=== PATIENT | female | born 1970 | race Caucasian/White ===

== ENCOUNTER 2017-10-16 16:10 | Observation (INO) | payer BC ==
[2017-10-16] VITALS (7 sets, daily range): BP systolic 138–178; BP diastolic 82–101; PULSE 80–96; RESP 16–17; TEMP 97.8–98.3; O2SAT 98–99
[~2017-10-16] VITALS: Ht 162.6 cm; Wt 71.0 kg
[~2017-10-16 16:10] MED LIST: LORTA5 PO
[2017-10-16] MEDS ORDERED: NALT1TAB3 PO (16:58)
[2017-10-16] MEDS ORDERED: ADDE20 PO (16:58)
[2017-10-16] MEDS ORDERED: ATOR20TA15 PO (16:58)
--- NOTE | 2017-10-16 17:13 | RADRPT ---
EXAM DATE/TIME: 10/16/2017 16:46 [facility] COMPARISON: No previous studies available for comparison. INDICATIONS : Posterior chest pain, denies injury MEDICAL HISTORY : None. SURGICAL HISTORY : None. ENCOUNTER: Initial ACUITY: 1 day PAIN SCORE: 5/10 LOCATION: chest FINDINGS: PA and lateral views of the chest demonstrate the lungs to be symmetrically aerated without evidence of mass, infiltrate or effusion. The cardiomediastinal contours are unremarkable. Osseous structure s are intact. CONCLUSION: No acute disease. Ashkan Logan MD on October 16, 2017 at 17:10 Board Certified Radiologist. This report was verified electronically.
[2017-10-16 17:14] LABS: AUTOMATED NEUTROPHIL # 5.3 TH/MM3 (1.8-7.7); BASOPHIL # 0.1 TH/MM3 (0-0.2); BASOPHIL % 1.1 % (0.0-2.0); EOSINOPHIL # 0.5 TH/MM3 (0-0.4); HEMOGLOBIN 13.5 GM/DL (11.6-15.3); LYMPH % 27.9 % (9.0-44.0); LYMPHOCYTE # 2.6 TH/MM3 (1.0-4.8); MEAN CELL VOLUME 92.7 FL (80.0-100.0); MEAN CORPUSCULAR HGB CONC 34.5 % (32.0-36.0); MEAN PLATELET VOLUME 8.3 FL (7.0-11.0); MONO % 8.8 % (0.0-8.0); MONOCYTE # 0.8 TH/MM3 (0-0.9); NEUT % 57.2 % (16.0-70.0); PLATELET COUNT 309 TH/MM3 (150-450); RED BLOOD COUNT 4.21 MIL/MM3 (4.00-5.30); RED CELL DISTRIBUTION WIDTH 12.4 % (11.6-17.2); WHITE BLOOD COUNT 9.3 TH/MM3 (4.0-11.0)
[2017-10-16] MEDS ORDERED: ASPIRIN 81 MG CHEW TAB CHEW ONE (17:15)
--- NOTE | 2017-10-16 17:20 | PD ---
HPI . Chest pain Chief Complaint: Cardiac Complaint Time Seen by Provider: 17:01 Travel History International Travel<30 days: No Contact w/Intl Traveler<30days: No Traveled to known affect area: No History of Present Illness HPI Patient presents with a chief complaint of chest pain. She describes a discomfort that starts in her back and pushes through her chest. It started last night. It has waxed and waned. Intensity is 6/10. Quality is a pressure/ pounding sensation. She also states that she feels like her heart is beating irregularly. Symptoms are associated with a headache. PFSH Past Medical History Cancer: No Cardiovascular Problems: No High Cholesterol: Yes Diabetes: No Diminished Hearing: No Endocrine: No Gastrointestinal Disorders: Yes (hiatel hernia) Genitourinary: No Hepatitis: No Hiatal Hernia: Yes Hypertension: No Immune Disorder: Yes (psorisis) Medical other: Yes Musculoskeletal: No Neurologic: No Psychiatric: No Reproductive: Yes Respiratory: No Thyroid Disease: No Tetanus Vaccination: > 5 Years Influenza Vaccination: No ?: Not Menopausal: Yes : 2 Para: 2 Dilation and Curettage (D&C): Yes Tubal Ligation: Yes Past Surgical History Gynecologic Surgery: Yes (NOVASURE ABLATION, TUBAL LIG., D & C,CERVIC REMOVED) Hysterectomy: Yes (PARTIAL) Pacemaker: No Other Surgery: Yes (ABLATION) Social History Alcohol Use: Yes (EVERY OTHER DAY) Tobacco Use: No (quit 20 years ago) Substance Use: No Allergies-Medications (Allergen,Severity, Reaction): Coded Allergies: latex (Verified Allergy, Severe, rash, 10/16/17) morphine (Verified Allergy, Severe, SHORT OF BREATH, 10/16/17) Reported Meds & Prescriptions Reported Meds & Active Scripts Active Reported Adderall (Amphetamine-Dextroamphetamine) 20 Mg Tab 20 Mg PO DAILY Avoid late evening doses. Space doses at least 4 to 6 hours if more than once/day dosing. Contrave ER 12 HR (Naltrexone HCl-Bupropion ER 12 HR) 8-90 Mg Tab 1 Tab PO BID Atorvastatin (Atorvastatin Calcium) 20 Mg Tab 20 Mg PO HS Review of Systems Except as stated in HPI: all other systems reviewed are Neg HENT: Positive: Headaches Cardiovascular: Positive: Chest Pain or Discomfort, Palpitations Respiratory: No: Shortness of Breath Physical Exam Narrative GENERAL: Awake and alert. SKIN: warm/dry. HEAD: Normocephalic. Atraumatic. EYES: Pupils equal and round. No scleral icterus. No injection or drainage. ENT: No nasal bleeding or discharge. Mucous membranes pink and moist. NECK: Trachea midline. Full range of motion without pain.. CARDIOVASCULAR: Regular rate and rhythm. She has a high pitched, brief systolic sound at the end of systole. My PA believes that this is a click. RESPIRATORY: No accessory muscle use. Clear to auscultation. Breath sounds equal bilaterally. MUSCULOSKELETAL: No obvious deformities. NEUROLOGICAL: Awake and alert. No obvious cranial nerve deficits. Motor grossly within normal limits. Normal speech. PSYCHIATRIC: Appropriate mood and affect; insight and judgment normal. Data Data Last Documented VS Vital Signs Date Time Temp Pulse Resp B/P (MAP) Pulse Ox O2 Delivery O2 Flow Rate FiO2 10/16/17 17:04 85 17 164/89 (114) 98 Room Air 10/16/17 16:14 98.3 Orders Orders Electrocardiogram (10/16/17 16:16) Complete Blood Count With Diff (10/16/17 16:16) Basic Metabolic Panel (Bmp) (10/16/17 16:16) Ckmb (Isoenzyme) Profile (10/16/17 16:16) Troponin I (10/16/17 16:16) Iv Access Insert/Monitor (10/16/17 16:16) Ecg Monitoring (10/16/17 16:16) Oxygen Administration (10/16/17 16:16) Oximetry (10/16/17 16:16) Act Partial Throm Time (Ptt) (10/16/17 16:16) Prothrombin Time / Inr (Pt) (10/16/17 16:16) Chest, Pa & Lat (10/16/17 ) Aspirin Chew (Aspirin Chew) (10/16/17 17:15) Labs Laboratory Tests Test 10/16/17 16:28 White Blood Count 9.3 TH/MM3 Red Blood Count 4.21 MIL/MM3 Hemoglobin 13.5 GM/DL Hematocrit 39.0 % Mean Corpuscular Volume 92.7 FL Mean Corpuscular Hemoglobin 32.0 PG Mean Corpuscular Hemoglobin Concent 34.5 % Red Cell Distribution Width 12.4 % Platelet Count 309 TH/MM3 Mean Platelet Volume 8.3 FL Neutrophils (%) (Auto) 57.2 % Lymphocytes (%) (Auto) 27.9 % Monocytes (%) (Auto) 8.8 % Eosinophils (%) (Auto) 5.0 % Basophils (%) (Auto) 1.1 % Neutrophils # (Auto) 5.3 TH/MM3 Lymphocytes # (Auto) 2.6 TH/MM3 Monocytes # (Auto) 0.8 TH/MM3 Eosinophils # (Auto) 0.5 TH/MM3 Basophils # (Auto) 0.1 TH/MM3 CBC Comment DIFF FINAL Differential Comment Prothrombin Time 10.5 SEC Prothromb Time International Ratio 1.0 RATIO Activated Partial Thromboplast Time 25.0 SEC Blood Urea Nitrogen 5 MG/DL Creatinine 0.77 MG/DL Random Glucose 92 MG/DL Calcium Level 8.8 MG/DL Sodium Level 140 MEQ/L Potassium Level 3.6 MEQ/L Chloride Level 108 MEQ/L Carbon Dioxide Level 24.4 MEQ/L Anion Gap 8 MEQ/L Estimat Glomerular Filtration Rate 81 ML/MIN Total Creatine Kinase 93 U/L Troponin I LESS THAN 0.02 NG/ML MDM Medical Decision Making Medical Screen Exam Complete: Yes Emergency Medical Condition: Yes Interpretation(s) EKG shows a sinus rhythm with a rate of 89. No ST segment elevation or depression. She does have LVH. Differential Diagnosis Differential diagnosis of chest pain includes but is not limited to musculoskeletal pain, pulmonary embolism, acute coronary syndrome, pneumonia, pleurisy Narrative Course This patient presents with chest pain. Routine cardiac workup is in process. Aspirin has been ordered. Last Impressions Chest X-Ray 10/16/17 0000 Signed Impressions: Service Date/Time: September 16:46 - CONCLUSION: No acute disease. Ashkan Logan MD The chest x-ray was independently reviewed by me. CBC & BMP Diagram 10/16/17 16:28 Calcium Level 8.8 trop < 0.02 The patient is amenable to admission to the chest pain center. Diagnosis Primary Impression: Chest pain Qualified Codes: R07.9 - Chest pain, unspecified Admitting Information Admitting Physician Requests: Observation Condition: Stable Josy Aranda MD Oct 16, 2017 17:19
[2017-10-16 17:22] LABS: BICARBONATE 24.4 MEQ/L (21.0-32.0); BLOOD UREA NITROGEN 5 MG/DL (7-18); CALCIUM 8.8 MG/DL (8.5-10.1); CHLORIDE 108 MEQ/L (98-107); CREATININE 0.77 MG/DL (0.50-1.00); GLOMERULAR FILTRATION RATE 81 ML/MIN (>89); GLUCOSE,RANDOM 92 MG/DL (74-106); SODIUM (NA) 140 MEQ/L (136-145)
[2017-10-16 17:26] LABS: TROPONIN I LESS THAN 0.02 NG/ML (0.02-0.05)
[2017-10-16 17:31] LABS: PROTHROMBIN TIME - PATIENT 10.5 SEC (9.8-11.6)
[2017-10-16] MEDS ORDERED: SODIUM CHLORIDE 0.9% FLUSH 10 ML FLUSH IV FLUSH PRN (19:15)
[2017-10-16 20:14] LABS: TROPONIN I LESS THAN 0.02 NG/ML (0.02-0.05)
[2017-10-16] MEDS ORDERED: ONDANSETRON HCL 4 MG/2 ML VIAL IV PUSH PRN (21:30)
[2017-10-16] MEDS ORDERED: ACETAMINOPHEN 500 MG CPLT PO PRN (21:30)
[2017-10-16] MEDS: SODIUM CHLORIDE 0.9% FLUSH 10 ML FLUSH IV FLUSH SCH (21:54)
[2017-10-16 22:42] LABS: TROPONIN I LESS THAN 0.02 NG/ML (0.02-0.05)
[2017-10-17 00:16] VITALS: BP 117/71; PULSE 84; RESP 16; O2SAT 97
[2017-10-17 00:22] VITALS: PULSE 80
[2017-10-17 02:53] VITALS: BP 117/61; PULSE 61; RESP 16; TEMP 98.2; O2SAT 96
[2017-10-17 04:08] VITALS: PULSE 72
[2017-10-17 06:51] VITALS: BP 113/69; PULSE 79; RESP 16; TEMP 98.2; O2SAT 97
[2017-10-17] MEDS ORDERED: NITROGLYCERIN 0.4 MG SL 25 TABS/BTL SL PRN ×2 (07:15→07:45)
--- NOTE | 2017-10-17 07:52 | HHI.HP ---
HPI Primary Care Physician Alem Tate MD Chief Complaint Chest discomfort History of Present Illness 47-year-old female history of hyperlipidemia presents to emergency room for further evaluation of chest discomfort. Onset 2 nights ago in middle of night. Reported being awaken from discomfort. Location midback. Characterized as pressure, like someone "punching me with fluttering in my chest." Radiation to midchest. Duration constant. No associated symptoms of nausea, vomiting, dyspnea , or diaphoresis. No known precipitating or relieving factors. No particular movement or position makes pain better or worse. Endorses similar pain last week, lasting a few minutes. Review of Systems General: No fatigue,weakness, fever, chills, recent illness, or change in appetite. Has been under general state of health. HEENT: No RODRIGUEZ, no vision changes, no nasal congestion or drainage, no dysphasia CV: Continues to have chest discomfort as stated above. Palpitations have resolved. RESP: No SOB, cough, wheeze, or recent URI. GI: No nausea, vomiting, bowel changes, diarrhea, constipation, pain, distention , melena, or blood in the stool. No unintentional weight gain or weight loss : No dysuria, urgency, frequency EXT: No lower leg edema, no paraesthesias MS: No discomfort, injury, trauma, or change in ROM NEURO: No change in memory, dizziness, difficulty with balance, LOC, or motor/ sensory deficits PSYCH: No anxiety, depression, suicidal ideation. Increased stress over last couple of weeks, reporting stress improving past week. SKIN: No rashes, no concerning lesions Past Family Social History Allergies: Coded Allergies: latex (Verified Allergy, Severe, rash, 10/16/17) morphine (Verified Allergy, Severe, SHORT OF BREATH, 10/16/17) Past Medical History Hyperlipidemia, hiatal hernia, psoriasis, heart murmur Past Surgical History Tubal ligation, partial hysterectomy Reported Medications Reported Meds & Active Scripts Active Reported Adderall (Amphetamine-Dextroamphetamine) 20 Mg Tab 20 Mg PO DAILY Avoid late evening doses. Space doses at least 4 to 6 hours if more than once/day dosing. (Reports rare use) Contrave ER 12 HR (Naltrexone HCl-Bupropion ER 12 HR) 8-90 Mg Tab 1 Tab PO BID Atorvastatin (Atorvastatin Calcium) 20 Mg Tab 20 Mg PO Cetirizine PO daily Active Ordered Medications Current Medications Medications (Trade) Dose Ordered Sig/Janene Route Start Time Stop Time Status Last Admin (NS Flush) 2 ml UNSCH PRN IV FLUSH 10/16/17 19:15 (NS Flush) 2 ml BID IV FLUSH 10/16/17 21:00 10/16/17 21:54 (Zofran Inj) 4 mg Q6H PRN IV PUSH 10/16/17 21:30 (Tylenol) 500 mg Q4H PRN PO 10/17/17 08:00 10/17/17 07:49 (Nitrostat Sl) 0.4 mg Q5M PRN SL 10/17/17 07:45 (Aspirin) 325 mg DAILY PO 10/17/17 09:00 Family History Positive for early onset cardiovascular disease. Father first PA age 39, age 50 PA. Social History Known hyperlipidemia. No known diabetes, hypertension, or CAD. Former smoker, quit 15 years ago. 13 pack year history. Rare alcohol use. . Endorses sedentary lifestyle and job. Past cardiac testing None Physical Exam Vital Signs Vital Signs Date Time Temp Pulse Resp B/P (MAP) Pulse Ox O2 Delivery O2 Flow Rate FiO2 10/17/17 06:51 98.2 79 16 113/69 (84) 97 10/17/17 02:53 98.2 61 16 117/61 (79) 96 10/17/17 00:16 84 16 117/71 (86) 97 10/16/17 20:00 98 10/16/17 19:52 98.3 84 16 138/91 (107) 99 10/16/17 19:05 10/16/17 18:00 97.8 80 17 156/82 (106) 99 Room Air 10/16/17 17:04 85 17 164/89 (114) 98 Room Air 10/16/17 17:01 17 98 Room Air 10/16/17 17:01 83 17 98 Room Air 10/16/17 17:01 98 Room Air 10/16/17 16:14 98.3 96 16 178/101 (126) 99 Physical Exam GENERAL: Alert WN, WD, NAD, pleasant, female HEAD: NC, AT EYES: Sclera clear, conjunctiva without injection, pupils equal and round ENT: Mucous membranes pink and moist NECK: Supple, no masses, trachea midline CV: RRR, 3/6 midsystolic murmur, no JVD, S1-S2 no S3-S4. Bilateral carotid bruits L>R, likely referred sounds from cardiac murmur. Chest wall nontender with palpation. RESP: Clear lungs throughout bilateral, no crackles, wheeze, rhonchi, symmetrical chest rise, nonlabored, able to speak in full sentences ABD: Soft, NT, ND, no masses, positive bowel tones EXT: Pulses +2x4, no dependent edema MS: Normal tone x4 extremities, nontender, no obvious deformities, full range of motion NEURO: CN II through CN XII grossly intact, motor strength 5/5 PSYCH: A+O -3, pleasant affect, appropriate speech, mood, insight and judgment SKIN: Normal turgor, normal texture, no lesions, no rashes, even hair distribution Laboratory Laboratory Tests Test 10/16/17 16:28 10/16/17 18:00 10/16/17 21:55 White Blood Count 9.3 Red Blood Count 4.21 Hemoglobin 13.5 Hematocrit 39.0 Mean Corpuscular Volume 92.7 Mean Corpuscular Hemoglobin 32.0 Mean Corpuscular Hemoglobin Concent 34.5 Red Cell Distribution Width 12.4 Platelet Count 309 Mean Platelet Volume 8.3 Neutrophils (%) (Auto) 57.2 Lymphocytes (%) (Auto) 27.9 Monocytes (%) (Auto) 8.8 Eosinophils (%) (Auto) 5.0 Basophils (%) (Auto) 1.1 Neutrophils # (Auto) 5.3 Lymphocytes # (Auto) 2.6 Monocytes # (Auto) 0.8 Eosinophils # (Auto) 0.5 Basophils # (Auto) 0.1 CBC Comment DIFF FINAL Differential Comment Prothrombin Time 10.5 Prothromb Time International Ratio 1.0 Activated Partial Thromboplast Time 25.0 Blood Urea Nitrogen 5 Creatinine 0.77 Random Glucose 92 Calcium Level 8.8 Sodium Level 140 Potassium Level 3.6 Chloride Level 108 Carbon Dioxide Level 24.4 Anion Gap 8 Estimat Glomerular Filtration Rate 81 Total Creatine Kinase 93 88 103 Troponin I LESS THAN 0.02 LESS THAN 0.02 LESS THAN 0.02 Creatine Kinase MB 0.6 Result Diagram: 10/16/17 1628 10/16/17 1628 Imaging Last 48 hours Impressions Chest X-Ray 10/16/17 0000 Signed Impressions: Service Date/Time: September 16:46 - CONCLUSION: No acute disease. Ashkan Logan MD Course EKG NSR, nonspecific st segment changes Caprini VTE Risk Assessment Caprini VTE Risk Assessment: No/Low Risk (score <= 1) Caprini Risk Assessment Model Point Value = 1 Point Value = 2 Point Value = 3 Point Value = 5 Age 41-60 Minor surgery BMI > 25 kg/m2 Swollen legs Varicose veins or History of unexplained or recurrent spontaneous Oral contraceptives or hormone replacement Sepsis (< 1 month) Serious lung disease, including pneumonia (< 1 month) Abnormal pulmonary function Acute myocardial infarction Congestive heart failure (< 1 month) History of inflammatory bowel disease Medical patient at bed rest Age 61-74 Arthroscopic surgery Major open surgery (> 45 min) Laparoscopic surgery (> 45 min) Malignancy Confined to bed (> 72 hours) Immobilizing plaster cast Central venous access Age >= 75 History of VTE Family history of VTE Factor V Leiden Prothrombin 20682H Lupus anticoagulant Anticardiolipin antibodies Elevated serum homocysteine Heparin-induced thrombocytopenia Other congenital or acquired thrombophilia Stroke (< 1 month) Elective arthroplasty Hip, pelvis, or leg fracture Acute spinal cord injury (< 1 month) Prophylaxis Regimen Total Risk Factor Score Risk Level Prophylaxis Regimen 0-1 Low Early ambulation 2 Moderate Order ONE of the following: *Sequential Compression Device (SCD) *Heparin 5000 units SQ BID 3-4 Higher Order ONE of the following medications: *Heparin 5000 units SQ TID *Enoxaparin/Lovenox 40 mg SQ daily (WT < 150 kg, CrCl > 30 mL/min) *Enoxaparin/Lovenox 30 mg SQ daily (WT < 150 kg, CrCl > 10-29 mL/min) *Enoxaparin/Lovenox 30 mg SQ BID (WT < 150 kg, CrCl > 30 mL/min) AND/OR *Sequential Compression Device (SCD) 5 or more Highest Order ONE of the following medications: *Heparin 5000 units SQ TID (Preferred with Epidurals) *Enoxaparin/Lovenox 40 mg SQ daily (WT < 150 kg, CrCl > 30 mL/min) *Enoxaparin/Lovenox 30 mg SQ daily (WT < 150 kg, CrCl > 10-29 mL/min) *Enoxaparin/Lovenox 30 mg SQ BID (WT < 150 kg, CrCl > 30 mL/min) AND *Sequential Compression Device (SCD) Assessment and Plan Assessment and Plan #1 Atypical chest pain-chest pain center. Rule out 3 sets of EKGs, cardiac enzymes, monitor on telemetry overnight. Seen and evaluated by Dr. Roman Bernard. Proceed with nuclear exercise cardiac testing this a.m. Reassurance provided discomfort most likely not related to coronary blockages due to prolonged discomfort. Due to early onset cardiovascular disease in father and history of hyperlipidemia recommend cardiac testing. If unremarkable, plans will be discharged home with follow-up with PCP. Tylenol given for discomfort without relief, will given Toradol 30 mg IV x1 dose. Patient agreeable plan of care. #2 Mitral valve prolapse-Dr. Bernard discussed in length murmur identified, consider adding metoprolol to regimen upon discharge. Follow up with primary care provider with yearly monitoring of murmur only required. #3 History of hyperlipidemia-continue atorvastatin Ana Oakley Oct 17, 2017 07:52
[2017-10-17] MEDS ORDERED: ACETAMINOPHEN 500 MG CPLT PO PRN (08:00)
[2017-10-17 08:16] VITALS: BP 122/80; PULSE 86; RESP 18; TEMP 98.1; O2SAT 98
[2017-10-17] MEDS ORDERED: KETOROLAC TROMETHAMINE 30 MG/ML (IVP) VIAL IV PUSH ONE (08:45)
[2017-10-17] MEDS ORDERED: ASPIRIN 325 MG TAB PO SCH (09:00)
[2017-10-17] MEDS: SODIUM CHLORIDE 0.9% FLUSH 10 ML FLUSH IV FLUSH SCH (09:00)
--- NOTE | 2017-10-17 10:58 | RADRPT ---
EXAM DATE/TIME: 10/17/2017 09:12 [facility] COMPARISON: No previous studies available for comparison. INDICATIONS : Angina DOSE: 25.9 mCi Tc99m Myoview at stress 8.5 mCi Tc99m Myoview at rest REST HEART RATE: 83 BPM TARGET HEART RATE: 148 BPM MAX HEART RATE: 151 BPM REST BLOOD PRESSURE: 136/82 mmHg MAX BLOOD PRESSURE: 144/82 mmHg EJECTION FRACTION: 37% MEDICAL HISTORY : SURGICAL HISTORY : Tubal ligation. ENCOUNTER: Initial ACUITY: 1 day PAIN SCALE: 6/10 LOCATION: Bilateral chest pain starts in her back and radiates to the chest TECHNIQUE: The patient underwent upright treadmill exercise in the chest pain center. Continuous ECG tracing wa s monitored during stress. Gated SPECT imaging was performed after stress, and conventional SPECT im aging was performed at rest. The examination was performed on a SPECT/CT scanner, both attenuation-c orrected and non-corrected datasets were reviewed. FINDINGS: DISTRIBUTION: The maximum perfused segment at stress is in the anterolateral wall. PERFUSION STUDY: The pattern of perfusion at stress is within normal limits. GATED STUDY: Mild left ventricular chamber dilatation and global moderate hypokinesis CONCLUSION: Moderately impaired LV function. No evidence of ischemia RISK CATEGORY: Intermediate (1-3% Annual Mortality Rate) Arnel Rob MD on October 17, 2017 at 10:54 Board Certified Radiologist. This report was verified electronically.
--- NOTE | 2017-10-17 11:06 | HHI.DCPOC ---
Discharge Care Plan Diagnosis: (1) Atypical chest pain (2) Decreased cardiac ejection fraction (3) Mitral valve prolapse Goals to Promote Your Health * To prevent worsening of your condition and complications * To maintain your health at the optimal level Directions to Meet Your Goals Take your medications as prescribed Follow your dietary instruction Follow activity as directed Keep your appointments as scheduled Take your immunizations and boosters as scheduled If your symptoms worsen call your PCP, if no PCP go to Urgent Care Center or Emergency Room Smoking is Dangerous to Your Health. Avoid second hand smoke Call the 24-hour hour crisis hotline for domestic abuse at Ana Oakley Oct 17, 2017 11:06
[2017-10-17] MEDS ORDERED: METO25TA3 PO (11:11)
--- NOTE | 2017-10-18 11:36 | TR ---
Date Performed: 10/17/2017 Time Performed: 09:53:29 DOCTOR: Dean Fowler DRUG LIST: CLINICAL HISTORY: CHEST PAIN REASON FOR TEST: REASON FOR ENDING: OBSERVATION: CONCLUSION: Peter protocol completed. Stopped sec to exceeding target heart rate and leg fatigue . Maximum UQ=594 Target HR Achieved=87.0% Total Exercise Time=6:01 Maximum BF=256/82. No reprod chest discomfort Rare PVC. Good exercise tolerance. Baseline nonspecific st changes. Normal bp response. R ecovery quick and unremarkable. Nuclear images pending. COMMENTS: Radionuclide was injected one minute prior to ending test. Nuclear imaging and interp retation are pending. ST wave changes are borderline 1.0 mm depressed.
--- NOTE | 2017-10-18 11:50 | EKG ---
Date Performed: 10/16/2017 Time Performed: 22:29:38 PTAGE: 47 years EKG: Sinus rhythm VOLTAGE CRITERIA FOR LVH ABNORMAL ECG PREVIOUS TRACING : 10/16/2017 19.57 Since previous tracing, no significant change noted DOCTOR: Dean Fowler Interpretating Date/Time 10/18/2017 11:50:06
--- NOTE | 2017-10-18 11:50 | EKG ---
Date Performed: 10/17/2017 Time Performed: 06:45:52 PTAGE: 47 years EKG: Sinus rhythm ABNORMAL ECG INTERPRETATION BASED ON A DEFAULT AGE OF 41 YEARS NO PREVIOUS TRACING DOCTOR: Dean Fowler Interpretating Date/Time 10/18/2017 11:48:19
--- NOTE | 2017-10-18 11:51 | EKG ---
Date Performed: 10/16/2017 Time Performed: 19:57:54 PTAGE: 47 years EKG: Sinus rhythm MODERATE VOLTAGE CRITERIA FOR LVH, CONSIDER NORMAL VARIANT BORDERLINE ECG PREVIOUS TRACING : 10/16/2017 16.21 Since previous tracing, no significant change noted DOCTOR: Dean Fowler Interpretating Date/Time 10/18/2017 11:50:54
--- NOTE | 2017-10-18 11:55 | EKG ---
Date Performed: 10/16/2017 Time Performed: 16:21:44 PTAGE: 47 years EKG: Sinus rhythm VOLTAGE CRITERIA FOR LVH ABNORMAL ECG PREVIOUS TRACING : 11/04/2009 17.22 Since previous tracing, no significant change noted DOCTOR: Dean Fowler Interpretating Date/Time 10/18/2017 11:54:21
== END 2017-10-17 15:20 | disposition home or self-care (01) ==
LOC: NEPC 16:10 → NEDA 17:40 → NEPFCDU 19:31
PROVIDERS: ADMIT Internal Medicine Cardiovascular Disease; ATTEND Internal Medicine Cardiovascular Disease
DX: R07.89 Other chest pain (principal); R94.31 Abnormal electrocardiogram [ECG] [EKG]; R51 Headache; I34.1 Nonrheumatic mitral (valve) prolapse; E78.00 Pure hypercholesterolemia, unspecified; Z87.891 Personal history of nicotine dependence; Z79.899 Other long term (current) drug therapy
CPT/HCPCS: 71046; 78452; 80048; 82550; 82552; 84484; 85025; 85610; 85730; 93005; 93017; 99285; A9502; G0378